=== PATIENT | male | born 1950 | race Caucasian/White ===

== ENCOUNTER 2017-01-25 18:31 | Emergency (ER) | payer OTHER ==
[2017-01-25 22:46] VITALS: BP 130/89
== END 2017-01-25 22:47 | disposition home or self-care (01) ==
LOC: ED 18:31
DX: S13.4XXA Sprain of ligaments of cervical spine, initial encounter (principal); S23.3XXA Sprain of ligaments of thoracic spine, initial encounter; I10 Essential (primary) hypertension; Z88.0 Allergy status to penicillin; V49.9XXA Car occupant (driver) (passenger) injured in unspecified traffic accident, initial encounter; Y93.89 Activity, other specified; Y99.8 Other external cause status; Y92.89 Other specified places as the place of occurrence of the external cause

== ENCOUNTER 2018-03-31 20:29 | Emergency (ER) | payer OTHER ==
[~2018-03-31] VITALS: Ht 165.1 cm; Wt 83.5 kg
[2018-03-31 20:44] VITALS: Ht 165.1 cm; Wt 83.5 kg
[2018-03-31 22:05] LABS: BASOPHIL % 0.9 % (0-2); PLATELET COUNT 169 x10^3mcL (130-400); RED CELL DISTRIBUTION WIDTH 12.2 % (11.5-14.5)
[2018-03-31 22:33] LABS: CALCIUM 8.5 mg/dL (8.5-10.1); CARBON DIOXIDE 25.4 mmol/L (21-32); CHLORIDE SERUM 101 mmol/L (98-107); CREATININE SERUM 1.1 mg/dL (0.7-1.3); GFR1 > 60 mL/min; GLUCOSE SERUM 109 mg/dL (74-106); POTASSIUM SERUM 3.8 mmol/L (3.5-5.1); SODIUM SERUM 137 mmol/L (136-145)
[2018-03-31 22:37] LABS: ALBUMIN 3.9 g/dL (3.4-5.0); ALKALINE PHOSPHATASE 105 U/L (46-116); ALT/SGPT 43 U/L (16-63); AST/SGOT 23 U/L (15-37); BILIRUBIN TOTAL 0.2 mg/dL (0.20-1.00); TOTAL PROTEIN, SERUM 7.8 g/dL (6.4-8.2)
[2018-03-31 23:15] VITALS: BP 154/97
== END 2018-03-31 23:15 | disposition home or self-care (01) ==
LOC: ED 20:29
PROVIDERS: Emergency Medicine
DX: I16.0 Hypertensive urgency (principal); I47.1 Supraventricular tachycardia; Z88.0 Allergy status to penicillin
CPT/HCPCS: 36415